=== PATIENT | male | born 1980 | race Caucasian/White ===

== ENCOUNTER 2024-02-03 05:39 | Inpatient (IN) | payer OTHER, SELFPAY ==
[2024-02-03] VITALS (12 sets, daily range): BP systolic 92–141; BP diastolic 54–87; BMI 29.2
--- NOTE | 2024-02-03 02:36 | ED.GENMED ---
History of Present Illness
General
Chief Complaint: Rectal Bleeding
Source: patient
Exam Limitations: none
Time Seen by Provider: 02/03/24 02:17
Nursing documentation reviewed up to this point in time: agreed with
History of Present Illness
History of Present Illness:
This is a 43-year-old gentleman who has history of diverticulosis as well as internal hemorrhoids. He follows with colorectal surgeon at [facility] in [place] and underwent internal hemorrhoidal banding x 2; 6 weeks ago as well as 3 weeks
ago. He states he has 1 additional internal hemorrhoid that will require banding in the near future. He has had several colonoscopies, most recently November of this year showing internal hemorrhoids as well as diverticulosis.
He developed bilateral lower abdominal pain a week ago and was evaluated at urgent care a week ago, diagnosed with diverticulitis due to reportedly elevated white blood cell count and was started on amoxicillin last week. Lower abdominal pain has
since resolved.
Over the past week he has noticed some bright red blood streaking around soft stools only noted in the morning.
Tonight however he developed abrupt onset of bright red rectal bleeding passing a large amount of bright red blood as well as clots. He has had 2 episodes of passing a large amount of bright red blood with clots within the past hour.
He denies abdominal pain, admits to feeling somewhat anxious but denies dizziness nor lightheadedness currently. He has been briefly lightheaded throughout the week most noted during exercise.
He takes no anticoagulants.
He denies fever nor chills.
He admits to occasional/social alcohol use and has not been drinking alcohol over the past 6 weeks but was out with friends tonight and admits to consuming approximately 7 beers throughout the evening.
Past History
Past History
ED Past Medical History: Other (Diverticulosis/diverticulitis, internal hemorrhoids)
ED Past Surgical History: Orthopedic (Shoulder surgery), Urological (Vasectomy) and Other (Internal hemorrhoid banding x 2)
Social History
Tobacco: Non-smoker
Alcohol: Occasional
Drug: None
Personal: Single
Living: with family
Employment: Employed
Family History
Family History: Other (Noncontributory)
Phy Exam
Physical Exam
Physical Exam:
GENERAL: 43-year-old gentleman appears his stated age, awake and alert, mildly anxious, easily communicative. Hemodynamically stable.
EYE: anicteric
NECK: Supple, nontender, no meningismus, no significant adenopathy.
ENT: oral mucosa is moist. No rhinorrhea.
CARDIAC: Regular rate and rhythm. no murmur.
LUNGS: Clear breath sounds bilaterally, no acute respiratory distress, no wheezes/rales/rhonchi
ABDOMEN: Soft, nondistended, without focal tenderness, no r/g, no cvat. normoactive BS. Rectal exam reveals moderate bright red blood per rectum. No masses nor palpable tenderness.
NEUROLOGICAL: Alert and oriented x3, no focal neuro deficits.
SKIN: Warm and dry, normal color, skin intact. No rash.
MUSCULOSKELETAL: No C/C/E. peripheral pulses are full and equal b/l. No palpable tenderness.
PSYCH: Normal and appropriate interaction.
Course
Orders/Labs/Results
Orders:
Orders
02/03/24 02:23
IV Insert/Care/Rem.- Treatment PRN
02/03/24 02:24
Type+Screen Urgent
Complete Blood Count/With Diff Urgent
Comprehensive Metabolic Panel Urgent
02/03/24 02:35
CT Abd/pelvis Angio W/wo Iv Urgent
Comment:
Reason For Exam: acute severe rectal bleeding
0.9% Sodium Chloride 1000 ml [Nss] 1,000 ml IV BOLUS
02/03/24 02:24
02/03/24 02:24
Vital Signs
Initial and Last Documented VS:
Initial Vital Signs
Temp Pulse Resp BP Pulse Ox
97.6 F 104 16 141/87 100
02/03/24 02:10 02/03/24 02:10 02/03/24 02:10 02/03/24 02:10 02/03/24 02:10
Last Documented Vital Signs
Temp Pulse Resp BP Pulse Ox
97.6 F 104 16 111/60 94
02/03/24 02:10 02/03/24 02:10 02/03/24 02:10 02/03/24 04:07 02/03/24 04:15
MDM/Problems Addressed
Differential Diagnosis Includes:
Acute GI bleeding appears lower GI bleeding in nature.
Currently hemodynamically stable with concern for acute blood loss anemia, concern for persistent/recurrent bleeding that may be internal hemorrhoid related versus diverticular bleed.
Will initiate IV fluid bolus, check labs and plan for CT angiogram abdomen pelvis to assess for active bleeding.
*Radiology
Radiology exam reviewed: radiology read reviewed
*Pulse Oximetry
Patient hypoxic: no
*Addressograph Operator Interpretation
Rate: normal
Interpretation: normal
Rhythm: sinus
*Critical Care Note
Total Time (30-74mins, 75-104mins- exclusive of procedures): Not Applicable
Update Note
Update Note:
02/03/2024 0514 AM
Patient remains hemodynamically stable and has had no further rectal bleeding since arrival to the ED but with history of significant bleeding prior to arrival, a fair amount of dried blood medial thighs bilaterally, I have concern for recurrent
significant rectal bleeding thus we will plan to admit to hospitalist service.
Labs are reassuring.
CAT scan shows left-sided colonic diverticulosis with concern for mild acute focal diverticulitis but no evidence of acute extravasation of contrast.
ED Attending Note
-
Portions of this chart may have been created with voice recognition software.� Occasional wrong word or��sound alike� substitutions may have occurred due to the inherent limitations of voice recognition software.
Discharge Plan
Departure
Patient Disposition: Admit
Date of Disposition: 02/03/24
Time of Disposition: 05:16
Admit to: Med/Surg
Admit to doctor: Darrin
Presentation/result/management discussed w/ accepting MD/DO: Hospitalist
Condition: Fair
Discharge Problem:
acute rectal bleeding, Diverticulitis
Prescriptions:
No Action
No Current Medications
0
Referrals:
Mario Garcia, DO [Family Provider] -
Interventions
Interventions:
*Risk Screen - Suicide Last Done: 02/03/24 02:10
*General Assessment Last Done: 02/03/24 02:10
*Neglect/Abuse Screening Last Done: 02/03/24 02:10
ED- Fall Risk Assessment Last Done: 02/03/24 02:24
*ED COVID-19 Vaccine History Last Done: 02/03/24 02:39
WP-Xbusqe-Gidljrdoca Assessment Last Done: 02/03/24 02:24
ED- Cardiac Assessment Last Done: 02/03/24 02:24
ED- Pulmonary Assessment Last Done: 02/03/24 02:24
Discharge Date and Time
Print Language: BELARUSIAN
[2024-02-03] MEDS: NSS 1000 IV ×2 (02:42→06:16)
[2024-02-03 03:10] LABS: % Basophils 0.6 % (0-2); % Eosinophils 2.6 % (0-6); % Immature Granulocytes 0.3 % (0-0.5); % Lymphocytes 28.3 % (20.5-51.1); % Monocytes 6.3 % (1.7-9.3); % Neutrophils 61.9 % (42.2-75.2); Absolute Basophils 0.1 10^3/uL (0-0.2); Absolute Eosinophils 0.2 10^3/uL (0-0.7); Absolute Lymphocytes 2.3 10^3/uL (1.2-3.4); Absolute Monocytes 0.5 10^3/uL (0.1-0.6); Hematocrit 43.1 % (39.0-52.0); Hemoglobin 15.1 g/dL (13.0-18.0); Mean Corpuscular Hgb 30.6 pg (27.0-31.0); Mean Corpuscular Volume 87.4 fL (80.0-94.0); Mean Platelet Volume 9.9 fL (7.4-10.4); Nucleated Red Blood Cells % 0 % (-); Platelet Count 360 10^3/uL (130-400); Red Blood Cell Count 4.93 10^6/uL (4.70-6.10); Red Cell Dist. Width 12.4 % (11.5-14.5)
[2024-02-03 03:27] LABS: ALT (SGPT) 31 U/L (0-50); AST (SGOT) 28 U/L (17-59); Albumin 4.9 g/dl (3.5-5.0); Alkaline Phosphatase 57 U/L (38-126); Blood Urea Nitrogen 14 mg/dl (9-20); Calcium 9.7 mg/dl (8.4-10.2); Carbon Dioxide 26 mmol/L (22-30); Chloride 106 mmol/L (98-107); Estimated Creatinine Clearance 87 ml/min; Glucose 92 mg/dl (70-99); Potassium 4.5 mmol/L (3.5-5.1); Sodium 143 mmol/L (135-145); Total Bilirubin 0.4 mg/dl (0.2-1.3); Total Protein 7.4 g/dl (6.3-8.2); eGFR > 60.00
--- NOTE | 2024-02-03 05:33 | HPS.HSE ---
Family Physician
-
Family Physician: Mario Garcia
Chief Complaint
-
Rectal Bleeding
History of Present Illness
Patient is a 43y M with PMH significant for internal hemorrhoids who presents to ED complaining of rectal bleeding this evening. Patient states that he had colonoscopy done about one month ago by GI group in [place]. He was noted to have
significant internal hemorrhoids and - since that time - he has undergone two separate banding procedures. He states that he is scheduled for a third and final procedure in the next few weeks.
About two weeks ago, he developed LLQ abdominal pain and was seen at Urgent Care where he was diagnosed with diverticulitis.
He was placed on 'amoxicillin' and states that he has early completed that course. His abdominal pain has completely resolved.
This evening around midnight, patient went to the bathroom and noted that he had a large amount of bright red blood in his underpants and down his legs.
He was concerned with the large amount of blood that he saw and he presented to the ED for further evaluation.
Patient has no pain, burning or rectal discomfort. He denies any abdominal pain, fevers / chills, N/V/D.
Patient states that he has had no further bleeding since arrival here.
Medical History
Past Medical History
Past Medical History: Reports Other
Additional Past Medical History:
Internal Hemorrhoids
Diverticular Disease
Past Surgical History: Reports Other
Additional Past Surgical History:
Shoulder Surgery
Hemorrhoid Banding (x 2)
Social History
Tobacco: Non-smoker
Alcohol: Occasional
Drug: None
Family History
Family History: Not pertinent
Allergies / Home Medications
Allergies reflects when Allergies were last updated in [facility].
Home Medications with original date entered in [facility]
Allergy/Medication List:
Allergies
Allergy/AdvReac Type Severity Reaction Status Date / Time
No Known Allergies Allergy Unverified 02/03/24 02:13
Home Medications
No Meds [No Current Medications] 02/03/24
Review of Systems
-
History Source: Patient
A 12 point ROS was completed and negative except as noted: Yes
Constitutional: Denies Fever or Chills
Respiratory: Denies Cough or Trouble Breathing
Cardiac: Denies Chest Pain or Palpitations
Abdomen/GI: Reports Other (Rectal bleeding); Denies Abdominal Pain, Nausea, Vomiting, Diarrhea or Black Stools
: Denies Dysuria, Frequency or Flank Pain
Neurological: Denies Dizzy or Headache
Physical Exam
Vital Signs
Vital Signs
Temp Pulse Resp BP Pulse Ox
97.6 F 104 16 111/60 94
02/03/24 02:10 02/03/24 02:10 02/03/24 02:10 02/03/24 04:07 02/03/24 04:15
Physical Exam
General: Other (43y M in no acute distress.)
HEENT: Moist mucous membranes and PERRLA
Respiratory: Clear; No Wheezes, Rales or Rhonchi
Cardiac: S1/S2 and Regular Rhythm; No Murmur
GI: Soft, Non Tender, Non Distended and Normal Bowel Sounds
Rectal: Other (Evident bright red blood from recent bleeding. No visible external hemorrhoids / masses.)
Musculoskeletal: No Clubbing, No Cyanosis and No Edema
Neuro: AO x 3
Laboratory Results
-
02/03/24 02:24
02/03/24 02:24
Laboratory Results
Total Bilirubin 0.4 mg/dl (0.2-1.3) 02/03/24 02:24
AST 28 U/L (17-59) 02/03/24 02:24
ALT 31 U/L (0-50) 02/03/24 02:24
Alkaline Phosphatase 57 U/L (38-126) 02/03/24 02:24
Impression/Plan
-
A/P: Patient is a 43y M with PMH significant for hemorrhoids who presents to ED for evaluation of significant rectal bleeding this evening.
Rectal Bleeding
Internal Hemorrhoids
- Admit for further evaluation and treatment.
- Bleeding is very likely secondary to hemorrhoids.
- Initial Hgb is unremarkable - follow for changes.
- Borderline hypotension / tachycardia on arrival.
- IVFs / volume support.
- Follow H&H and transfuse if needed.
- CTA was done in the ED and shows no active bleeding.
- GI evaluation.
- Send for records from [facility].
Recent Diverticulitis
- Symptoms have resolved, afebrile, no leukocytosis, etc.
- Completed 2 weeks of abx thus far.
- Observe off of further abx for now and follow for any new / recurrent symptoms.
DVT Prophylaxis: SCDs
Code Status: Full
--- NOTE | 2024-02-03 06:24 | CON.GI ---
Addendum entered and electronically signed by Carter Doyle MD 02/03/24 13:02:
I saw and examined the patient.
The STRUCTURES MECHANIC or PA's note was reviewed and I agree with the note.
Comment:
This patient is a 43-year-old man with a history of hemorrhoids with recent hemorrhoid banding. He also has a history of diverticulitis and was on antibiotics. He did have some rectal bleeding that was consistent with his hemorrhoids. It has
stopped over the last day.
abd: soft, nontender
impression: rectal bleeding resolved
h/o diverticulitis
plan:
bleeding stopped and likely from hemorrhoids.
should f/u with his colorectal as he still has one banding left
will sign off
Original Note:
Consultation
-
Date/Time Consultation Requested: 02/03/24 06
Date/Time Consultation Performed: 02/03/24629
Requesting Provider: Jason Clifford DO
Performing Provider: ROBERTH Krishnan, Carter doyle MD
Reason for Consultation: Rectal bleeding
Medical History
Chief Complaint / HPI
History of Present Illness:
Pt is a 43yo with hx colon polyps, diverticulosis and hemorrhoids. He has hx colonoscopy at age 36 with 14 polyps. He had several follow up colonoscopies last in November with no polyps, diverticulosis and hemorrhoids completed with US digestive in
[place] with last in November. He then completed hemorrhoidal banding 6 and 3 weeks ago and due for follow up banding for occasional rectal bleeding. He was seen in urgent care last week with concern for diverticulitis and started on Amoxicillin.
He now presents with bright red blood around stool and passing larger amounts of blood with clots x1 episode. hbg 15.1 with slight drop to 13.5 after admission with no further bleeding.
Pt otherwise admits to regular stools without dysphagia, GERD, nausea, vomiting, abdominal pain or black stools. No NSAID or anticoagulation use.
Past Medical History
Past Medical History: Other (diverticulosis/diverticulitis, hemorrhoids, colon polyps)
Past Surgical History: Orthopedic (shoulder surgery), Urological (vastectomy) and Other (hemorrhoidal banding )
Social History
Tobacco: Non-Smoker
Alcohol: Occasional
Drug: None
Personal:
Living: With Family
Employment: Employed
Family History
Family History: Other (no family hx colon CA or polyps)
Allergies / Home Medications
Allergy/AdvReac Type Severity Reaction Status Date / Time
No Known Allergies Allergy Unverified 02/03/24 02:13
�Medication �Instructions �Recorded
No Meds [No Current Medications] 02/03/24
Review of Systems
-
History Source: Patient
Constitutional: Reports No Symptoms
EENT: Reports No Symptoms
Respiratory: Reports No Symptoms
Cardiac: Reports No Symptoms
Abdomen/GI: Reports Bloody Stools
: Reports No Symptoms
Musculoskeletal: Reports No Symptoms
Skin: Reports No Symptoms
Neurological: Reports No Symptoms
Endocrine: Reports No Symptoms
Hematologic/Lymphatic: Reports Bleeding
Vital Signs
Temp Pulse Resp BP Pulse Ox
97.6 F 104 16 107/63 96
02/03/24 02:10 02/03/24 02:10 02/03/24 02:10 02/03/24 05:00 02/03/24 05:45
Physical Exam
Exam
General: Well Developed, Well Nourished and No Apparent Distress
HEENT: Normocephalic and Anicteric
Respiratory: Clear
Cardiac: Regular Rhythm
GI: Soft, Non Tender and Non Distended
Rectal: Other (no blood in exam no external + internal hemorrhoids )
Musculoskeletal: No Clubbing and No Cyanosis
Skin: Warm and Dry
Neuro: Awake, Alert and AO x 3
Psych: Calm
Results
WBC 8.0 10^3/uL (4.8-10.8) 02/03/24 02:24
Hgb 15.1 g/dL (13.0-18.0) 02/03/24 02:24
Hct 43.1 % (39.0-52.0) 02/03/24 02:24
MCV 87.4 fL (80.0-94.0) 02/03/24 02:24
Plt Count 360 10^3/uL (130-400) 02/03/24 02:24
Absolute Neuts (auto) 5.0 10^3/uL (1.4-6.5) 02/03/24 02:24
Sodium 143 mmol/L (135-145) 02/03/24 02:24
Potassium 4.5 mmol/L (3.5-5.1) 02/03/24 02:24
Chloride 106 mmol/L (98-107) 02/03/24 02:24
Carbon Dioxide 26 mmol/L (22-30) 02/03/24 02:24
BUN 14 mg/dl (9-20) 02/03/24 02:24
Creatinine 1.0 mg/dL (0.7-1.3) 02/03/24 02:24
Calcium 9.7 mg/dl (8.4-10.2) 02/03/24 02:24
Total Bilirubin 0.4 mg/dl (0.2-1.3) 02/03/24 02:24
AST 28 U/L (17-59) 02/03/24 02:24
ALT 31 U/L (0-50) 02/03/24 02:24
Alkaline Phosphatase 57 U/L (38-126) 02/03/24 02:24
Diagnostic Image Results:
CT pending
Prior GI Procedures:
=
Colonoscopy: several first with 14 polyps last in november no polyps, diverticulosis and hemorrhoid
Assessment / Plan
-
Pt is a 43yo with hx colon polyps, diverticulosis and hemorrhoids. He has hx colonoscopy at age 36 with 14 polyps. He had several follow up colonoscopies last in November with no polyps, diverticulosis and hemorrhoids completed with US digestive in
[place] with last in November. He then completed hemorrhoidal banding 6 and 3 weeks ago and due for follow up banding for occasional rectal bleeding. He was seen in urgent care last week with concern for diverticulitis and started on Amoxicillin.
He now presents with bright red blood around stool and passing larger amounts of blood with clots x1 episode. hbg 15.1 with slight drop to 13.5 after admission with no further bleeding.
-rectal bleeding
-recent diverticulitis with Amoxicillin use
-recent hemorrhoidal banding
-diverticulosis
-hx colon polyps last colonoscopy in november no polyps noted
PLAN:
etiology of bleeding related to hemorrhoids with hx hemorrhoids requiring recent banding vs diverticular bleed vs other
await CT to rule out active diverticular bleed- but if present current bleeding has resolved
hbg 15.1--13.5 cont to follow
trend stool pattern
if increased bleeding consider flex vs colorectal consultation vs IR angio if CTA+
ok for clear diet advance as tolerated if bleeding remains stopped
if no further bleeding consider discharge later today with OP follow up with US digestive in [place] for further banding
-
-
-
Thank you for consultation and allowing me to participate in the patient's care. Please call the healthcare economics manager GI physician during the after hours with any questions or concerns.
[2024-02-03 06:27] LABS: Hematocrit 38.4 % (39.0-52.0); Hemoglobin 13.5 g/dL (13.0-18.0)
--- NOTE | 2024-02-03 10:04 | W.DCSUMMARY ---
Discharge Summary
Discharge Data
Date of Admission: 02/03/24
Date of Discharge: 02/03/24
-
Pending Results: No
Hospital Course
Discharge diagnosis: Rectal bleeding secondary to internal hemorrhoids. Recent diverticulitis.
Hospital course: 43 years old male with history of internal hemorrhoids and recent banding procedure by colorectal surgery, latest 1 close to 3 weeks to this presentation. Patient presents with sudden onset of rectal bleeding the same night.
Denies any abdominal pain, upper gastrointestinal symptoms. Denies any fever. Patient with recent episode of diverticulitis which was treated with antibiotics with complete resolution of symptoms. While in the emergency room patient is
hemodynamically stable. Remains with stable serial hemoglobins at 13. Rectal bleeding subsided with no further episodes while in ED. CT angiogram in ED showed no active bleeding. Patient was seen in consultation by gastroenterology with
recommendation to advance diet and discharge home to follow-up with colorectal surgery for additional banding planned as elective procedure.
Discharge Plan
-
Patient Disposition: Home (Routine Discharge)
Discharge Diagnosis/Procedures: Hemorrhoidal bleeding
Condition: Good
Diet: Low Residue
Referrals:
Mario Garcia, DO [Family Provider] -
Prescriptions:
No Action
No Current Medications
0
Discharge Orders:
Discharge Patient (As Directed); Ordered 02/03/24
Ordered By: Teofilo Foote
Discharge Date and Time
Print Language: UGANDAN
[2024-02-03] MEDS: TYLENOL 650 MG PO (10:39)
--- NOTE | 2024-02-03 11:12 | PTCARENOTE ---
Patient tolerating clear liquid diet. Patient with blood streaks on stool and on toilette paper when wiping. Patient to be discharged after eating Low residue diet with no hemorrhage or increased bleeding.
[2024-02-03 13:05] LABS: Hematocrit 40.6 % (39.0-52.0); Hemoglobin 13.9 g/dL (13.0-18.0)
--- NOTE | 2024-02-03 13:54 | CM ---
CM reviewed medical records. Plan for discharge to home with no needs.
PLAN: Home no needs.
--- NOTE | 2024-02-03 14:14 | PTCARENOTE ---
Patient tolerated Low Residue diet. Patient had 2 BM, one with moderate amount of blood, the 2nd with minimal amount of blood. Patient states, 'This is typical for me. I want to go home.' Physician notified, discharge ordered.
== END 2024-02-03 14:57 | disposition home or self-care (01) | DRG 395 ==
LOC: ED 05:39
PROVIDERS: ADMITTING PHYSICIAN Hospitalist; ATTENDING PHYSICIAN Internal Medicine; CONSULT PHYSICIAN Internal Medicine; EMERGENCY PHYSICIAN Emergency Medicine; FAMILY PHYSICIAN Family Medicine
DX: K64.8 Other hemorrhoids (principal); I95.9 Hypotension, unspecified; Z87.19 Personal history of other diseases of the digestive system; Z86.010 Personal history of colon polyps
CPT/HCPCS: 74174; 80053; 85014; 85018; 85025; 86850; 86900; 86901; 96361; 96374; 99285; Q9967

== ENCOUNTER → 2025-07-07 13:03 | Outpatient (REF) | payer OTHER, SELFPAY | LOC: HWRAD 13:03 | PROVIDERS: ATTENDING PHYSICIAN Nurse Practitioner Family | DX: R10.32 Left lower quadrant pain (principal) | CPT/HCPCS: 74176 ==